=== PATIENT | female | born 1955 | race African-American/Black ===

== ENCOUNTER 2021-01-11 23:51 | Emergency (ER) | payer BC ==
[~2021-01-11] VITALS: Ht 167.6 cm; Wt 90.7 kg
[~2021-01-11 23:51] MED LIST: AZITHROMYCIN 2250 MG PO; PROVENTIL HFA6.7 G1 INH; TESSALON PERLE100 MG PO; VITAMIN D 5050000 I1 PO
[2021-01-12] MEDS ORDERED: PROMETHAZINE-D473 M1 PO (00:19)
[2021-01-12 01:23] LABS: ABSOLUTE NEUTROPHILS 6.4 thou/uL (1.4-8.2); EOSINOPHILS 0.9 % (0.0-3.0); HEMATOCRIT 36.7 % (37.0-47.0); HEMOGLOBIN 12.1 gm/dL (12.0-15.0); LYMPHOCYTES 20.6 % (24.0-44.0); MCH 28.6 pg (26.0-34.0); MCHC 33.1 g/dL (28.0-37.0); MCV 86.5 fL (80.0-100.0); PLATELET COUNT 303 thou/uL (150-400); POLYS 71.5 % (36.0-66.0); RBC 4.24 mil/uL (4.20-5.00); RDW 13.2 % (10.5-14.5)
[2021-01-12 01:26] LABS: CALCIUM 9.6 mg/dL (8.5-10.1); CREATININE 0.9 mg/dL (0.6-1.0); POTASSIUM 3.6 mmol/L (3.5-5.1)
[2021-01-12 01:36] LABS: ALBUMIN 3.2 g/dL (3.4-5.0); TOTAL BILIRUBIN 0.5 mg/dL (0.2-1.0); TOTAL PROTEIN 7.8 g/dL (6.4-8.2)
[2021-01-12] MEDS ORDERED: PROAIR HFA8.5 GM INH (01:56)
[2021-01-12] MEDS ORDERED: DOXYCYCLINE 10100 MG PO (01:56)
[2021-01-12 02:03] VITALS: BP 144/99
--- NOTE | 2021-01-12 10:15 | EKG ---
[place] [address] [place] [address] ELECTROCARDIOGRAM REPORT Name: ABHIJEET WINSTON [id number] Admission: 01/11/21 Attend Phys: Discharge: 01/12/21 Date of : 59 Report #: [id number] [facility] ED Test Date: 2021-01-12 Test Time: 00:52:26 Pat Name: ABHIJEET WINSTON Department: Room: Gender: F [place]: : 1955 Requested By: Nate Virk Order Number: [id number] MD: Luis Eduardo Yanez Measurements Intervals [place] Rate: 108 P: 58 MD: 156 QRS: 16 QRSD: 74 T: -30 QT: 292 QTc: 392 Interpretive Statements Sinus tachycardia LAE, consider biatrial enlargement Nonspecific T abnormalities, inferior leads Compared to ECG 01/30/2007 22:29:03 Sinus rhythm no longer present T-wave abnormality still present Electronically Signed On 01-12-2021 10:14:51 [employer]OOKING APPLIANCE REPAIR TECHNICIAN by Luis Eduardo Yanez [email or web address] <ELECTRONICALLY SIGNED> By: Luis Eduardo Yanez MD 01/12/21 1014 0052 0052 Luis Eduardo Yanez MD /TOBIAS
== END 2021-01-12 02:17 | disposition home or self-care (01) ==
LOC: ER 23:51
PROVIDERS: Emergency Medicine
DX: J18.9 Pneumonia, unspecified organism (principal); Z20.822 Contact with and (suspected) exposure to COVID-19; Z88.0 Allergy status to penicillin; Z91.041 Radiographic dye allergy status; Z79.899 Other long term (current) drug therapy

== ENCOUNTER 2021-01-14 19:40 | Inpatient (IN) | payer BC ==
[~2021-01-14] VITALS: Wt 83.0 kg
[~2021-01-14 19:40] MED LIST changes: +DOXYCYCLINE 10100 MG PO; +PROAIR HFA8.5 GM INH; +PROMETHAZINE-D473 M1 PO
[2021-01-14 19:49] VITALS: BP 182/106
[2021-01-14 21:27] LABS: BASOPHILS 0.7 % (0.0-2.0); EOSINOPHILS 0.4 % (0.0-3.0); HEMATOCRIT 37.7 % (37.0-47.0); HEMOGLOBIN 12.5 gm/dL (12.0-15.0); LYMPHOCYTES 10.2 % (24.0-44.0); MCH 28.3 pg (26.0-34.0); MCV 85.7 fL (80.0-100.0); MONOCYTES 4.9 % (1.0-8.0); PLATELET COUNT 373 thou/uL (150-400); POLYS 83.8 % (36.0-66.0); RDW 13.2 % (10.5-14.5); WBC 10.7 thou/uL (4.0-11.0)
[2021-01-14 21:32] LABS: CALCIUM 9.5 mg/dL (8.5-10.1); CREATININE 0.9 mg/dL (0.6-1.0); POTASSIUM 3.8 mmol/L (3.5-5.1)
[2021-01-14 21:38] LABS: ALBUMIN 3.1 g/dL (3.4-5.0); TOTAL BILIRUBIN 0.6 mg/dL (0.2-1.0); TOTAL PROTEIN 7.9 g/dL (6.4-8.2)
[2021-01-14 23:16] VITALS: BP 155/91
[2021-01-14 23:41] VITALS: BP 131/79
[2021-01-15 00:33] VITALS: BP 137/80
[2021-01-15 05:22] VITALS: BP 150/88
--- NOTE | 2021-01-15 05:42 | NUR ---
PT ARRIVED ON UNIT FROM ED AT 0030. ADMITTED FROM HOME WITH COMMUNITY ACQUIRED PNEUMONIA. DENIES PAIN. AMBULATING TO BATHROOM INDEPENDENTLY. RESTING COMFORTABLY. NO NEEDS VOICED. CALL LIGHT WITHIN REACH. FREQUENT OBSERVATION.
[2021-01-15 08:18] VITALS: BP 146/82
[2021-01-15 11:57] VITALS: BP 135/74
[2021-01-15 15:59] VITALS: BP 152/82
--- NOTE | 2021-01-15 18:30 | NUR ---
PT STATES SHE FEELING SOME BETTER. TAKING GUAFFENSIN AND ABLE TO COUGH UP SOME MUCOUS AT TIMES. NO WHEEZING NOTED BUT DIMINISHED. TOOK SHOWER THIS AFTERNOON. EATING AND DRINKING WELL. USING I/S. DENIES PAIN.
[2021-01-15 20:17] VITALS: BP 122/81
--- NOTE | 2021-01-16 04:03 | NUR ---
PT AMBULATING TO BATHROOM INDEPENDENTLY AND IS TOLERATING WELL. DENIES PAIN. RESTING COMFORTABLY. NO NEEDS VOICED. CALL LIGHT WITHIN REACH. FREQUENT OBSERVATION.
[2021-01-16 08:00] VITALS: BP 148/87
--- NOTE | 2021-01-16 09:00 | NUR ---
Chart review. Unable to visit rt attending physician visiting with her. Noted her been up adlib independently in room. No anticipated needs, will cont. following if needs arise.
--- NOTE | 2021-01-16 10:01 | NUR ---
ASSUMED CARE OF PT AT 0700 THIS MORNING. PT IS A/OX4 AND AMBULATES W/O ASST. PT HAS CONGESTION IN BILAT LOWER LOBES WITH WHEEZING IN UPPER. PT HAD BREATHING TX THIS MORNING AND LUNGS SOUND MORE CLEAR IN UPPER LOBES. ASSESSMENTS NOTED IN CHART AND OTHERWISE UNREMARKABLE. NO FALL PRECAUTIONS NEEDED. CALL LIGHT AND OTHER NEEDS ARE IN REACH. MEDS AND TX GIVEN NEEDED AND SCHEDULED. WILL CONTINUE TO MONITOR AND NOTE ANY CHANGES. DR. SAMPSON ORDERED AND ECHO AND IF RESULTS ARE GOOD, SHE MAY BE DISCHARGED WITH PO ANTIBIOTICS.
[2021-01-16] MEDS ORDERED: LEVOFLOXACIN500 MG PO (12:58)
--- NOTE | 2021-01-16 16:18 | 2DMMODE ---
[facility] [address] [place] [address] 2 D/M-MODE ECHOCARDIOGRAM Name: ABHIJEET WINSTON Radha Room #: 448-P ADM IN M.R.#: [id number] Admission: 01/14/21 Attend Phys: Ted Bradley MD Discharge: Date of : 59 Report #: [id number] THIS REPORT FOR: cc: Elvin Bagley MD, Michael B. MD Santiago, Patrick MD [facility] ~ APPROVED REPORT Study performed: 01/16/2021 15:45:22 EXAM: Comprehensive 2D, Doppler, and color-flow Echocardiogram Patient Location: In-Patient Room #: 449 Status: routine BSA: 1.93 HR: 96 bpm BP: 122/81 mmHg Rhythm: NSR Other Information Study Quality: Adequate Indications Dyspnea 2D Dimensions IVSd: 17.74 (7-11mm) LVOT Diam: 21.55 (18-24mm) LVDd: 26.87 mm PWd: 12.72 (7-11mm) Ascending Ao: 28.68 (22-36mm) LVDs: 18.57 (25-40mm) Left Atrium: 40.74 (27-40mm) Aortic Root: 37.80 mm Volumes Left Atrial Volume (Systole) Single Plane 4CH: 42.16 mL Single Plane 2CH: 42.67 mL Biplane LA Volume: 45.00 mL LA ESV Index: 23.00 mL/m2 Aortic Valve AoV Peak Aristeo.: 1.62 m/s AO Peak Gr.: 12.44 mmHg LVOT Max P.74 mmHg LVOT Max V: 1.09 m/s VINICIUS Vmax: 2.45 cm2 [facility] [address] [place] [address] 2 D/M-MODE ECHOCARDIOGRAM Name: ABHIJEET WINSTON Room #: 448-P [facility] IN [facility]#: [id number] Admission: 01/14/21 Attend Phys: Ted Bradley, Discharge: Date of : 59 Report #: [id number] Mitral Valve E/A Ratio: 0.9 MV Decel. Time: 980.08 ms MV E Max Aristeo.: 0.46 m/s MV A Aristeo.: 0.52 m/s MV PHT: 284.22 ms IVRT: 55.36 ms Pulmonary Valve PV Peak Aristeo.: 1.47 m/s PV Peak Gr.: 8.66 mmHg IL End Vmax: 1.81 m/s Pulmonary Vein P Vein S: 0.56 m/s P Vein A: 0.52 m/s P Vein D: 0.49 m/s P Vein A Dur.: 73.8 msec P Vein S/D Ratio: 1.14 Tricuspid Valve TR Peak Aristeo.: 3.42 m/s RAP Estimate: 7.00 mmHg TR Peak Gr.: 46.81 mmHg RVSP: 54.00 mmHg Left Ventricle The left ventricle is normal size. There is normal LV segmental wall motion. Moderate concentric left ventricular hypertrophy. Left ventricular systolic function is normal. The left ventricular ejection fraction is within the normal range. LVEF is 60-65%. This study is not technically sufficient to allow evaluation of the LV diastolic function. Right Ventricle The right ventricle is normal size. The right ventricular systolic function is normal. Atria The left atrium size is normal. The right atrium size is normal. Aortic Valve Aortic valve is trileaflet. No aortic regurgitation is present. There is no aortic valvular stenosis. Mitral Valve The mitral valve is normal in structure. Trace mitral regurgitation. No evidence of mitral valve stenosis. Tricuspid Valve [facility] [address] [place] [address] 2 D/M-MODE ECHOCARDIOGRAM Name: ABHIJEET WINSTON Room #: 448-P [facility] IN .R.#: [id number] Admission: 01/14/21 Attend Phys: Ted Bradley, Discharge: Date of : 59 Report #: [id number] The tricuspid valve is normal in structure. Moderate tricuspid regurgitation. PAP 54 mmHg Pulmonic Valve The pulmonary valve is normal in structure. There is no pulmonic valvular regurgitation. Great Vessels The aortic root is normal in size. IVC is normal in size and collapses >50% with inspiration. The pulmonary artery is normal. Pericardium There is no pericardial effusion. <Conclusion> Normal left ventricle size with moderate concentric hypertrophy Ejection fraction 65% Normal right ventricle size/function Normal atrial size Normal aortic/mitral valve structure and function Moderate tricuspid valve insufficiency Moderate pulmonary hypertension PA pressure estimated 54 mmHg No pericardial effusion Normal aortic root size <ELECTRONICALLY SIGNED> By: Zion Yip MD, FACC 01/16/211617 17 17 Zion Yip MD, FACC /INF
[2021-01-16 17:13] VITALS: BP 148/87
== END 2021-01-16 17:46 | disposition home or self-care (01) | DRG 195 ==
LOC: ER 19:40 → EROBS 21:49 → 4S 21:49
PROVIDERS: Emergency Medicine; ADMIT Internal Medicine; ATTEND Internal Medicine
DX: J18.9 Pneumonia, unspecified organism (principal); Z88.0 Allergy status to penicillin; Z88.8 Allergy status to other drugs, medicaments and biological substances; Z20.822 Contact with and (suspected) exposure to COVID-19; I10 Essential (primary) hypertension; J45.909 Unspecified asthma, uncomplicated
CPT/HCPCS: 10100

== ENCOUNTER → 2021-02-01 | Outpatient (CLI) | payer BC ==
[~2021-02-01] MED LIST changes: +LEVOFLOXACIN500 MG PO
== END ==
LOC: RAD 12:53
PROVIDERS: ATTEND Family Medicine
DX: Z09 Encounter for follow-up examination after completed treatment for conditions other than malignant neoplasm (principal)